=== PATIENT | female | born 1985 | race Caucasian/White ===

== ENCOUNTER 2018-07-25 18:37 | Inpatient (IN) ==
[2018-07-26] MEDS ORDERED: Potassium Chlor 40 mEq Premix 40 MEQ/100 ML PIGGYBACK IV.SIG PRN ×2 (02:05)
[2018-07-26] MEDS ORDERED: Insulin Regular (For Infusion) 100 UNIT in Sodium Chlor 0.9% Inj 99 ML IV.CONT PRN (02:05)
[2018-07-26] MEDS ORDERED: Potassium Chlor 20 mEq Premix 20 MEQ/100 ML PIGGYBACK IV.SIG PRN ×6 (02:05)
[2018-07-26] MEDS ORDERED: Sodium Phosphate Inj 15 MMOL in Sodium Chlor 0.9% Inj 100 ML IV.SIG PRN (02:05)
[2018-07-26] MEDS ORDERED: Morphine Inj 4 MG/ML Vial IV.PUSH PRN (02:07)
[2018-07-26] MEDS ORDERED: Bisacodyl 10 MG Supp RECTAL PRN (02:07)
[2018-07-26] MEDS ORDERED: Acetaminophen 325 MG Tablet PO PRN (02:07)
--- NOTE | 2018-07-26 02:17 | P.HPCC ---
History of Present Illness Service: Critical care medicine Primary Care Physician: No Primary Care Physician Chief Complaint: Nausea and vomiting, high blood sugar History of Present Illness: This is a 33-year-old female. Date of admission 07/18/2018. Past medical includes insulin dependent diabetes with diabetes retinopathy. Patient has not had a DKA episode in 5 years according to patient. For the past 20 respirations 3 nausea vomiting diarrhea. Patient consumed spaghetti which she is attributing to the high carbohydrate load was contributed to the spiral of uncontrolled blood sugars with symptomatic nausea/vomiting. Upon presentation to [facility] the ED, patient had a leukocytosis of 20,000, acute kidney injury and hyponatremia. Blood sugar was 5.2. Acetone was elevated. Patient received a 6 unit R insulin bolus followed by drip at 6 units an hour. She received 3 L normal saline wide open is currently subjectively improved the present time. Inpatient Certification: I certify that the inpatient services were ordered in accordance with Medicare regulations governing the order. This includes certification that hospital inpatient services are reasonable and necessary and in the case of services not specified as inpatient-only under 42 CFR 419.22(n), that they are appropriately provided as inpatient services in accordance to with the 2-midnight benchmark under 43 CFR 412.3(e) Estimated Total Length of Stay (Days): 3 Plans for Post Hospital Care: Not yet determined Review of Systems Constitutional: Reports weakness, Denies anorexia, Denies body ache(s), Denies chills, Denies fever(s) Eyes: Reports blurry vision, Reports floaters, Reports other, Denies blind spots , Denies bulging eyes, Denies change in vision, Denies itchy eyes Ears, Nose, Mouth, and Throat: Reports dry mouth, Denies abnormal hearing, Denies sinus pain, Denies tongue swelling Cardiovascular: Reports chest pain, Denies chest pain at rest, Denies chest pain with activity Respiratory: Denies change in phlegm color, Denies cough, Denies coughing up blood, Denies shortness of breath Gastrointestinal: Reports abdominal pain, Reports nausea, Reports vomiting, Denies constipation Genitourinary: Denies abnormal periods Musculoskeletal: Denies abnormal walking, Denies back pain, Denies body aches Skin/Breast: Denies acne Neurologic: Denies abnormal hearing, Denies localized weakness Psychiatric: Denies anxiety, Denies confusion Endocrine: Reports cold intolerance, Reports heat intolerance, Denies excessive sweating Hematologic/Lymphatic: Denies easy bleeding Allergic/Immunologic: Denies GI upset with certain foods PMFSH - History History Provided By: Patient - Medical History Medical History: Medical History (Last Updated 07/26/18 @ 02:15 by Bishop Paris MD) 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 Knowledge deficit on leg surgery - Surgical History Surgical History: Surgical History (Last Updated 07/26/18 @ 02:14 by Bishop Paris MD) History of eye surgery - Family History Family History: Family History (Last Updated 07/26/18 @ 02:14 by Bishop Parsi MD) Other Family history of diabetes mellitus in grandfather - Tobacco History Second Hand Smoke Exposure: Yes Tobacco Use In Past 30 Days: Yes Smoking Status: Current every day smoker Tobacco Type: Cigarettes - Alcohol History How Often Do You Have a Drink Containing Alcohol: 2 to 3 times a week - Substance Use History Substance History: Past History Medications and Allergies Active Medications: Active Medications Acetaminophen (Tylenol) 650 mg PO Q6H PRN PRN Reason: PAIN 1-10 AND/OR FEVER >101F Hydrocodone Bitart/Acetaminophen (Malone 5/325) 1 tab PO Q4H PRN PRN Reason: PAIN SCALE 1 TO 5 Al Hydroxide/Mg Hydroxide (Milk Of Magnesia Liq) 30 ml PO Q12H PRN PRN Reason: Mild Constipation Albuterol (Albuterol Neb (Monique)) 2.5 mg NEB Q2HR NEB PRN PRN Reason: SHORTNESS OF BREATH/WHEEZING Bisacodyl (Dulcolax Supp) 10 mg RECTAL DAILY PRN PRN Reason: SEVERE CONSITIPATION Chlorhexidine Gluconate (Chlorhexidine 2% Cloth) 3 pack TOPICAL DAILY@0400 MONIQUE Stop: 07/31/18 03:59 Chlorhexidine Gluconate (Chlorhexidine 2% Cloth) 3 pack TOPICAL DAILY@0400 PRN PRN Reason: Extra cloth needed Stop: 07/31/18 03:59 Chlorhexidine Gluconate (Chlorhexidine 2% Cloth) 3 pack TOPICAL DAILY@0400 MONIQUE Stop: 07/31/18 03:59 Chlorhexidine Gluconate (Chlorhexidine 2% Cloth) 3 pack TOPICAL DAILY@0400 PRN PRN Reason: Extra cloth needed Stop: 07/31/18 03:59 Famotidine (Pepcid Pf Inj) 20 mg IV.PUSH Q12HR MONIQUE Heparin Sodium (Porcine) (Heparin Inj) 5,000 units SQ Q12H MONIQUE Dextrose/Sodium Chloride (D5w/Normal Saline Inj) 1,000 mls @ 200 mls/hr IV.CONT .Q5H MONIQUE Insulin Human Regular 100 unit (/ Sodium Chloride) 100 mls @ 6 mls/hr IV.CONT TITRATE PRN; Protocol PRN Reason: See protocol Sodium Chloride (Ns Inj) 1,000 mls @ 250 mls/hr IV.CONT .Q4H MONIQUE Potassium Chloride (Kcl 40 Meq Premix Inj) 40 meq in 100 mls @ 100 mls/hr IV.SIG Q1H PRN PRN Reason: for Initial K+ ONLY < 3.5 Potassium Chloride (Kcl 20 Meq Premix Inj) 20 meq in 100 mls @ 100 mls/hr IV.SIG Q1H PRN PRN Reason: for K+ 3.5 to 4.4 Potassium Chloride (Kcl 20 Meq Premix Inj) 20 meq in 100 mls @ 100 mls/hr IV.SIG Q1H PRN PRN Reason: for K+ 4.5 to 5 Potassium Chloride (Kcl 20 Meq Premix Inj) 20 meq in 100 mls @ 50 mls/hr IV.SIG Q2H PRN PRN Reason: for Initial K+ ONLY < 3.5 Potassium Chloride (Kcl 20 Meq Premix Inj) 20 meq in 100 mls @ 50 mls/hr IV.SIG Q2H PRN PRN Reason: for Subsequent K+ < 3.5 Potassium Chloride (Kcl 20 Meq Premix Inj) 20 meq in 100 mls @ 50 mls/hr IV.SIG Q2H PRN PRN Reason: for K+ 3.5 to 4.4 Potassium Chloride (Kcl 20 Meq Premix Inj) 20 meq in 100 mls @ 50 mls/hr IV.SIG Q2H PRN PRN Reason: for K+ 4.5 to 5 Sodium Phosphate 15 mmol/ (Sodium Chloride) 105 mls @ 25 mls/hr IV.SIG UNSCH PRN PRN Reason: for Phosphate Level < 1.0 Potassium Chloride (Kcl 40 Meq Premix Inj) 40 meq in 100 mls @ 50 mls/hr IV.SIG Q2H PRN PRN Reason: for Subsequent K+ < 3.5 Lactulose (Lactulose Liq) 30 ml PO DAILY PRN PRN Reason: SEVERE CONSITIPATION Morphine Sulfate (Morphine Inj) 2 mg IV.PUSH Q2H PRN PRN Reason: PAIN SCALE 6 TO 10 Ondansetron HCl (Zofran Inj) 4 mg IV.PUSH Q6H PRN PRN Reason: NAUSEA OR VOMITING Senna/Docusate Sodium (Jeana-Colace) 1 tab PO BID MONIQUE Sennosides (Senokot) 17.2 mg PO Q12H PRN PRN Reason: Moderate Constipation Sodium Bicarbonate (Sodium Bicarbonate 8.4% Inj) 50 meq IV.PUSH UNSCH PRN PRN Reason: for pH 6.9 to 7.0 Sodium Bicarbonate (Sodium Bicarbonate 8.4% Inj) 100 meq IV.PUSH UNSCH PRN PRN Reason: for pH less than 6.9 Sodium Chloride (Ns Flush) 2 ml IV.FLUSH BID MONIQUE Sodium Chloride (Ns Flush) 2 ml IV.FLUSH PRN PRN PRN Reason: FLUSH AFTER USING IV ACCESS Allergies Allergy/AdvReac Type Severity Reaction Status Date / Time No Known Allergies Allergy Unverified 07/25/18 19:03 Home Medications Medication Instructions Recorded Confirmed Type insulin aspart U-100 [Novolog 1 sliding scale dose SUB-Q UD 07/25/18 07/25/18 History U-100 Insulin aspart] insulin glargine [Lantus U-100 24 unit SUB-Q DAILY 07/25/18 07/25/18 History Insulin] Exam Vital signs: Intake & Output 07/25/18 07/25/18 07/26/18 06:59 18:59 06:59 Weight 60 kg Other: Weight On Admission 60 kg - Constitutional no acute distress - Routine HEENT Exam Head: Present: normocephalic, atraumatic Eye: Present: EOMI, PERRL, normal accommodation ENT: Present: mucous membranes dry, dentition normal, external ear normal - Routine Neck Exam Present: supple, full ROM. Absent: JVD, carotid bruit - Routine Chest/Breast/Axilla Exam Chest wall: Absent: tenderness Breast: Absent: tenderness Axillae: Absent: lymphadenopathy - Routine Respiratory Exam Present: CTA bilaterally. Absent: accessory muscle use, rhonchi, stridor, wheezes, crackles - Routine Cardiovascular Exam Present: RRR, S1, S2. Absent: murmur - Routine Abdominal Exam Present: soft, normoactive bowel sounds, tenderness - Routine Extremities Exam Absent: cyanosis, clubbing, edema - Routine Skin Exam Present: intact. Absent: rash - Routine Neurological Exam Present: alert, oriented X3, CN II-XII intact. Absent: sensory deficit, motor deficit Septic Shock Reassessment Septic shock perfusion: reassessment completed Caprini VTE Risk Assessment Caprini VTE Risk Assessment: No/Low Risk (score <= 1) Caprini Risk Assessment Model: Point Value = 1 Point Value = 2 Point Value = 3 Point Value = 5 Age 41-60 Minor surgery BMI > 25 kg/m2 Swollen legs Varicose veins or History of unexplained or recurrent spontaneous Oral contraceptives or hormone replacement Sepsis (< 1 month) Serious lung disease, including pneumonia (< 1 month) Abnormal pulmonary function Acute myocardial infarction Congestive heart failure (< 1 month) History of inflammatory bowel disease Medical patient at bed rest Age 61-74 Arthroscopic surgery Major open surgery (> 45 min) Laparoscopic surgery (> 45 min) Malignancy Confined to bed (> 72 hours) Immobilizing plaster cast Central venous access Age >= 75 History of VTE Family history of VTE Factor V Leiden Prothrombin [id number] Lupus anticoagulant Anticardiolipin antibodies Elevated serum homocysteine Heparin-induced thrombocytopenia Other congenital or acquired thrombophilia Stroke (< 1 month) Elective arthroplasty Hip, pelvis, or leg fracture Acute spinal cord injury (< 1 month) Prophylaxis Regimen: Total Risk Factor Score Risk Level Prophylaxis Regimen 0-1 Low Early ambulation 2 Moderate Order ONE of the following: *Sequential Compression Device (SCD) *Heparin 5000 units SQ BID 3-4 Higher Order ONE of the following medications: *Heparin 5000 units SQ TID *Enoxaparin/Lovenox 40 mg SQ daily (WT < 150 kg, CrCl > 30 mL/min) *Enoxaparin/Lovenox 30 mg SQ daily (WT < 150 kg, CrCl > 10-29 mL/min) *Enoxaparin/Lovenox 30 mg SQ BID (WT < 150 kg, CrCl > 30 mL/min) AND/OR *Sequential Compression Device (SCD) 5 or more Highest Order ONE of the following medications: *Heparin 5000 units SQ TID (Preferred with Epidurals) *Enoxaparin/Lovenox 40 mg SQ daily (WT < 150 kg, CrCl > 30 mL/min) *Enoxaparin/Lovenox 30 mg SQ daily (WT < 150 kg, CrCl > 10-29 mL/min) *Enoxaparin/Lovenox 30 mg SQ BID (WT < 150 kg, CrCl > 30 mL/min) AND *Sequential Compression Device (SCD) Assessment and Plan - Assessment and Plan Plan: Neuro/Psych: Diabetic retinopathy Patient has had "18" surgeries for her diabetic retinopathy. Acetaminophen 650 every 6 hours. Fever Hydrocodone/acetaminophen 5/321 tablet every 4 hours as needed pain 1 through 5 Morphine sulfate 2 mg IV every 2 hours as needed pain 6 - 10 CV: Patient is currently on normal saline at 250 cc an hour Not requiring antihypertensives and/or vasopressors Resp: Ongoing tobaccoism Nasal cannula to maintain saturations greater than equal to 92% Incentive rhoda tobaccoism metry while awake Albuterol aerosols every 2 hours as needed dyspnea Tobacco cessation self evaluation booklet will be provided when clinically appropriate GI: Nausea/vomiting : No indication for Nagel catheter Endo: IDDM Diabetic ketoacidosis Received 6 units R insulin at ED. Currently on insulin drip at 6 units an hour Beta hydroxybutyrate every 12 hours until cleared Serial BMP, magnesium phosphorus every 6 hours. Switch to D5 normal saline once blood sugar less than 150 Hemoglobin A1c ordered Renal: Acute kidney injury Accurate I's and O's Currently with adequate urine output Heme: Leukocytosis Monitor CBC daily. Follow trends No indication for transfusion of blood products at this time. ID: Monitor for signs and symptomatology infection. UA negative at [facility]. Blood cultures 2 ordered Influenza a and B swab ordered MSK: Out of bed PT evaluate and treat FEN: Pseudohyponatremia Replace electrolytes as clinically indicated per DKA electrolyte protocol Access -Utilize peripheral IV. Central line if indicated Prophylaxis -GI - famotidine -DVT -SCD/heparin subcu Level 3 H&P H&P: Quality - VTE Deep Vein Thrombosis/Pulmonary Embolism Present on Admission: No
[2018-07-26] MEDS: Sod Chloride 0.9% Inj 1,000 ML IV.CONT SCH ×4 (02:20→16:02)
[2018-07-26] MEDS: Dextrose 5%/NaCl 0.9% Inj 1,000 ML IV.CONT SCH ×5 (02:22→17:32)
[2018-07-26] MEDS: Heparin - SQ 10,000 UNITS/ML Vial SQ SCH ×2 (02:22→16:02)
[2018-07-26 03:46] LABS: Baso # (Auto) 0.1 th/mm3 (0.0-0.2); Baso % (Auto) 0.4 % (0.0-2.0); Eos % (Auto) 0.2 % (0.0-4.0); Hematocrit 35.6 % (35.0-46.0); Hemoglobin 12.1 gm/dL (11.6-15.3); Lymph # (Auto) 1.9 th/mm3 (1.0-4.8); Lymph % (Auto) 14.9 % (9.0-44.0); Mean Corpuscular HGB Conc 34.1 % (32.0-36.0); Mean Corpuscular Hemoglobin 27.5 pg (27.0-34.0); Mean Corpuscular Volume 80.7 fL (80.0-100.0); Mean Platelet Volume 8.1 fL (7.0-11.0); Mono # (Auto) 0.7 th/mm3 (0.0-0.9); Mono % (Auto) 5.8 % (0.0-8.0); Neut # (Auto) 10.1 th/mm3 (1.8-7.7); Neut % (Auto) 78.7 % (16.0-70.0); Platelet Count 318 th/mm3 (150-450); Red Blood Count 4.41 mil/mm3 (4.00-5.30); White Blood Count 12.8 th/mm3 (4.0-11.0)
[2018-07-26] MEDS ORDERED: Chlorhexidine Gluconate 2% 1 Pack (2 Cloths) TOPICAL PRN ×2 (04:00)
[2018-07-26] MEDS ORDERED: Chlorhexidine Gluconate 2% 1 Pack (2 Cloths) TOPICAL SCH ×2 (04:00)
[2018-07-26 04:12] LABS: Anion Gap 11 meq/L (5-15); Blood Urea Nitrogen 18 mg/dL (7-18); Carbon Dioxide 20.3 meq/L (21.0-32.0); Chloride 112 meq/L (98-107); Cholesterol 147 mg/dL (120-200); Glomerular Filtration Rate 66 mL/min (>89); Glucose,Random 196 mg/dL (74-106); Magnesium 1.6 mg/dL (1.5-2.5); Phosphorus 1.7 mg/dL (2.5-4.9); Potassium 3.7 meq/L (3.5-5.1); Sodium 143 meq/L (136-145)
[2018-07-26 04:17] LABS: Beta Hydroxybutyric Acid 1.18 mmol/L (0.00-0.39); Chol/HDL Ratio 4.09 Ratio; Creatine Kinase 29 U/L (26-192); HDL Cholesterol 35.9 mg/dL (40.0-60.0); LDL Cholesterol,Calculated 76 mg/dL (0-99); Triglycerides 175 mg/dL (42-150)
[2018-07-26] MEDS ORDERED: Dextrose 50% in Water 50 ML Vial IV.PUSH PRN (07:51)
[2018-07-26] MEDS ORDERED: DC previous DKA orders (HMC 1917) OTHER ONE (07:51)
[2018-07-26] MEDS ORDERED: DC Insulin drip 2 hrs post basal insulin dose OTHER ONE (07:51)
[2018-07-26] MEDS ORDERED: Insulin Detemir Inj 1,000 UNIT/10 ML Vial SQ SCH (08:30)
[2018-07-26] MEDS: Insulin NovoLOG Aspart Correctional Sugar Inj SQ SCH ×3 (08:58→16:04)
[2018-07-26] MEDS ORDERED: Senna/Docusate Sodium 8.6/50 MG Tablet PO SCH (09:00)
[2018-07-26] MEDS ORDERED: Famotidine PF Inj 20 MG/2 ML Vial IV.PUSH SCH (09:00)
[2018-07-26 14:07] LABS: Anion Gap 12 meq/L (5-15); Blood Urea Nitrogen 12 mg/dL (7-18); Calcium 7.6 mg/dL (8.5-10.1); Carbon Dioxide 18.9 meq/L (21.0-32.0); Chloride 109 meq/L (98-107); Glomerular Filtration Rate Greater Than 89 mL/min (>89); Glucose,Random 175 mg/dL (74-106); Sodium 140 meq/L (136-145)
--- NOTE | 2018-07-27 06:30 | P.DS ---
Date of admission: 07/26/18 01:50 Primary care physician: No Primary Care Physician Attending physician on discharge: Bishop Wellington Anticipated date of discharge: 07/26/18 Brief History from admission: This is a 33-year-old female. Date of admission 07/18/2018. Past medical includes insulin dependent diabetes with diabetes retinopathy. Patient has not had a DKA episode in 5 years according to patient. For the past 20 respirations 3 nausea vomiting diarrhea. Patient consumed spaghetti which she is attributing to the high carbohydrate load was contributed to the spiral of uncontrolled blood sugars with symptomatic nausea/vomiting. Upon presentation to [facility] the ED, patient had a leukocytosis of 20,000, acute kidney injury and hyponatremia. Blood sugar was 5.2. Acetone was elevated. Patient received a 6 unit R insulin bolus followed by drip at 6 units an hour. She received 3 L normal saline wide open is currently subjectively improved the present time. DS: Diagnosis - Discharge Diagnosis (1) DKA (diabetic ketoacidoses) Status: Acute DS: Summary Hospital Course: his is a 33-year-old female. Date of admission 07/18/2018. Past medical includes insulin dependent diabetes with diabetes retinopathy. Patient has not had a DKA episode in 5 years according to patient. For the past 20 respirations 3 nausea vomiting diarrhea. Patient consumed spaghetti which she is attributing to the high carbohydrate load was contributed to the spiral of uncontrolled blood sugars with symptomatic nausea/vomiting. Upon presentation to [facility] the ED, patient had a leukocytosis of 20,000, acute kidney injury and hyponatremia. Blood sugar was 5.2. Acetone was elevated. Patient received a 6 unit R insulin bolus followed by drip at 6 units an hour. She received 3 L normal saline wide open is currently subjectively improved the present time. DKA resolved and patient was transitioned to sq Levemir and Novolog. However by evening patient signed out AMA - Time Spent with Patient Total time spent providing and/or coordinating discharge services: Less than 30 minutes - Quality: VTE Deep Vein Thrombosis/Pulmonary Embolism Present on Admission: No Exam Vital signs: Vital Signs 07/26/18 06:52 07/26/18 07:00 07/26/18 08:00 Temperature 99.3 F Pulse Rate 94 H 95 H 94 H Respiratory Rate 16 15 16 Blood Pressure 98/54 L 108/66 Pulse Oximetry 99 99 100 08/28/18 09:00 07/26/18 10:00 07/26/18 11:00 Temperature Pulse Rate 93 H 95 H 93 H Respiratory Rate 15 17 16 Blood Pressure 110/64 114/74 110/69 Pulse Oximetry 99 99 99 07/26/18 12:00 07/26/18 13:00 07/26/18 14:00 Temperature 98.8 F Pulse Rate 91 H 95 H 91 H Respiratory Rate 30 H 29 H 19 Blood Pressure 116/74 122/93 H 122/74 Pulse Oximetry 100 100 99 07/26/18 15:00 07/26/18 15:05 07/26/18 16:00 Temperature Pulse Rate 79 86 82 Respiratory Rate 14 20 17 Blood Pressure 108/67 Pulse Oximetry 99 99 98 Intake & Output 07/26/18 07/26/18 07/27/18 06:59 18:59 06:59 Intake Total 1999 / 1999 Output Total 300 / 300 Balance 1700 / 1700 Weight 60 kg Intake: IV 1999 / 1999 D5W/Normal Saline Inj 1,000 ML 1999 @ 200 mls/hr IV.CONT .Q5H [facility] Rx#:[id number] Output: Urine 300 / 300 Other: Weight On Admission 60 kg Narrative: Constitutional no acute distress - Routine HEENT Exam Head: Present: normocephalic, atraumatic Eye: Present: EOMI, PERRL, normal accommodation ENT: Present: mucous membranes dry, dentition normal, external ear normal - Routine Neck Exam Present: supple, full ROM. Absent: JVD, carotid bruit - Routine Chest/Breast/Axilla Exam Chest wall: Absent: tenderness Breast: Absent: tenderness Axillae: Absent: lymphadenopathy - Routine Respiratory Exam Present: CTA bilaterally. Absent: accessory muscle use, rhonchi, stridor, wheezes, crackles - Routine Cardiovascular Exam Present: RRR, S1, S2. Absent: murmur - Routine Abdominal Exam Present: soft, normoactive bowel sounds, tenderness - Routine Extremities Exam Absent: cyanosis, clubbing, edema - Routine Skin Exam Present: intact. Absent: rash - Routine Neurological Exam Present: alert, oriented X3, CN II-XII intact. Absent: sensory deficit, motor def Results Procedures completed during hospitalization: None Labs on day of discharge: Labs from last 24 hours 0807/26/18 07/26/18 15:54 13:37 12:38 Sodium 140 Potassium 4.0 Chloride 109 H Carbon Dioxide 18.9 L Anion Gap 12 BUN 12 Creatinine 0.72 Estimated GFR Greater than 89 POC Glucose 223 H 148 H Random Glucose 175 H Calcium 7.6 L 07/26/18 07/26/18 08:09 07:08 Sodium Potassium Chloride Carbon Dioxide Anion Gap BUN Creatinine Estimated GFR POC Glucose 167 H 157 H Random Glucose Calcium Discharge Plan - Discharge Disposition Patient Disposition: Left Against Medical Advice - Discharge Details Discharge Comment: AMA discharge. - Physicians Team Primary Care Provider: Primary Care Pilar Holliday Attending Provider: Bishop Paris Other Providers: Jackson Osorio DO - Rxs /Orders / Referrals /Forms Prescriptions: No Action insulin aspart U-100 [Novolog U-100 Insulin aspart] 100 unit/mL Solution 1 sliding scale dose SUB-Q UD insulin glargine [Lantus U-100 Insulin] 100 unit/mL Solution 24 unit SUB-Q DAILY
== END 2018-07-26 18:10 | disposition left against medical advice (07) ==
LOC: NEDDLT 07-26 01:40 → HIMC 07-26 01:50
PROVIDERS: ADMIT Internal Medicine Critical Care Medicine; ATTEND Internal Medicine Critical Care Medicine